=== PATIENT | female | born 1975 | race Caucasian/White ===

== ENCOUNTER → 2024-08-09 | Outpatient (CLI) | payer MEDICAID, SELFPAY ==
--- NOTE | 2024-08-09 | XR_ITS ---
Examination: Lumbar spine 2 views TECHNIQUE: Standing lateral flexion standing lateral extension lumbar spine 2 views Examination type: 2024 0807 hours INDICATIONS: Low back pain 21 years. FINDINGS: 4 mm anterolisthesis L5 on L4 in flexion, 3 mm in extension Qauv-vy-evjygfyb disc narrowing L2-L3, L4-L5 No lumbar fracture Significant decreased range of motion between flexion and extension IMPRESSION: No lumbar fracture [id number] degenerative disc disease L2-L3, L4-L5
--- NOTE | 2024-08-09 07:00 | XR_ITS ---
Examination: MRI lumbar spine without contrast Date and time of exam: August 09, 2024 at 0727 hours Comparison April 16, 2023 INDICATIONS: Low back pain 20 years, radiating down the legs Technique: Multiple MRI axial and sagittal sections lumbar spine. Sagittal T2-weighted images, TR 3500, TE 118 T1 weighted transverse sections, TR 688 T8.5, T2-weighted sagittal sections T1 weighted sagittal sections TR 621, TE 30 T2 axial sections, TR 4, 190, TE 84. Findings: Straightening normal lumbar lordosis No lumbar fracture Normal marrow signal lumbar vertebral bodies Mild disc narrowing L4-L5 with disc desiccation L4-L5 5 mm central lumbar disc bulge contiguous with the right and left L5 nerve roots Remaining levels are unremarkable IMPRESSION: L4-L5 5 mm several lumbar disc bulge contiguous with the right and left L5 nerve roots
== END | disposition home or self-care (01) ==
PROVIDERS: Referring Provider Specialist; Visit Provider Specialist
DX: M51.361 Other intervertebral disc degeneration, lumbar region with lower extremity pain only (principal)
CPT/HCPCS: 72120; 72148

== ENCOUNTER → 2024-09-09 | Outpatient (CLI) | payer MEDICAID, SELFPAY ==
--- NOTE | 2024-09-09 10:42 | XR_ITS ---
Examination: Lumbar spine 3 views Technique one AP lateral coned lateral lower lumbar spine 3 views Exam date and time: September 09, 2024 1217 hours INDICATIONS: Status post lumbar fusion August 27, 2024 FINDINGS: Transpedicular lumbar stabilization L4-S1 with anatomic alignment No lumbar fracture No spondylolisthesis Minimal lumbar spondylosis IMPRESSION: Lumbar stabilization L4-S1 with anatomic alignment
== END | disposition home or self-care (01) ==
PROVIDERS: Referring Provider Specialist; Visit Provider Specialist
DX: M51.361 Other intervertebral disc degeneration, lumbar region with lower extremity pain only (principal)
CPT/HCPCS: 72100

== ENCOUNTER 2024-11-30 15:23 | Emergency (ER) | payer MEDICAID, SELFPAY ==
[2024-11-30 15:24] VITALS: BMI 28.1
[2024-11-30 16:10] VITALS: BP 113/69; PULSE 67; RESP 17; TEMP 37.1; O2SAT 96
--- NOTE | 2024-11-30 16:14 | PD.EDHAND ---
Upper Extremity Injury RME/HPI General Chief Complaint: Hand/Wrist Problems Stated Complaint: I THINK I BROKE MY PINKY Time Seen by Provider: 11/30/24 15:45 Arrival date/time: 11/30/24 15:23 RME / HPI RME / HPI narrative: 49-year-old female presents to the ED with a complaint of left lateral hand injury secondary to an injury she sustained last night. She states she was walking down her hallway that has a couple of stairs and it, tripped and fell with her hand bent, striking her 4th and 5th MCP joint areas. She is complaining of swelling, pain and mild bruising. She states she has mild numbness to the left small finger. Related Data Home Medications ?Medication ?Instructions ?Recorded ?Confirmed gabapentin 600 mg tablet 1,200 mg PO TID #0 tabs 02/04/17 06/15/18 diclofenac sodium 75 mg 75 mg PO BID 07/08/17 06/15/18 tablet,delayed release baclofen 10 mg tablet 10 mg PO TID 12/09/17 06/15/18 Allergies Allergy/AdvReac Type Severity Reaction Status Date / Time sumatriptan Allergy Severe cxp Verified 11/30/24 15:23 Review of Systems Review of Systems Systems Reviewed: All systems reviewed, normal except as documented Past Medical History Past Medical History NEUROLOGIC: Negative Neurological Disorders CARDIAC: Positive Hypercholesterolemia and Hypertension; Negative Cardiac Disorders, Myocardial Infarction, Cardiac Arrhythmia, Atrial Fibrillation, Angina, Heart Murmur, Coronary Artery Disease, Atherosclerotic Heart Disease, Peripheral Vascular Disease, Aneurysm, Congestive Heart Failure, Congenital Heart Disease, Valvular Heart Disease, Rheumatic Fever, Cardiomyopathy, Edema, Pericarditis, Cellulitis, Deep Vein Thrombosis, Hypotension or Varicose Veins RESPIRATORY: Negative Chronic Obstructive Pulmonary Disease (COPD) or Asthma GASTROINTESTINAL: Positive Hepatitis; Negative Gastrointestinal Disorders or Colorectal Cancer GENITOURINARY: Negative Genitourinary Disorders, Renal Disease or Prostate Cancer REPRODUCTIVE: Negative Breast Cancer, Pelvic Inflammatory Disease or Testicular Cancer MUSCULOSKELETAL: Positive Musculoskeletal Disorders and Arthritis; Negative Bone Cancer ENDOCRINE: Negative Endocrine Disorders, Diabetes Mellitus Type 1, Diabetes Mellitus Type 2 or John's Disease HEMATOLOGIC: Positive Blood Disorders and Anemia; Negative Sickle Cell Disease OTHER HISTORY: Positive Chicken Pox; Negative Hospitalization, Autoimmune Disease, Down Syndrome, Developmental Delay, Shingles, Falls, Anesthesia Reactions, MRSA, Human Immunodeficiency Virus (HIV), Measles, Mumps, Rubella (Vietnamese Measles), Pertussis, Clostridium Difficile, Breast Cancer, Cervical Cancer, Colorectal Cancer, Lung Cancer, Ovarian Cancer, Prostate Cancer or Testicular Cancer Family History FAMILY HISTORY: Positive Family Psychiatric Problems, Family Respiratory Disorders, Family Cardiac Disorders and Family Cancer; Negative Family Gastrointestinal Problems, Family Surgery or Family Anesthesia Reaction Surgical History SURGICAL: Positive Hysterectomy; Negative Pacemaker Social History SMOKING STATUS: Current every day smoker ED Exam Narrative Physical exam: Alert and oriented, pleasant 49-year-old female, no acute distress. No respiratory distress noted. Skin is warm with normal color and dry with the exception of the fifth MCP joint area with minimal ecchymosis. Decreased range of motion of the 4th and 5th fingers secondary to swelling/pain. No tenderness to the 1st, 2nd, 3rd or 4th metacarpals or fingers. Course Course Course Narrative: X-rays of the left hand reveals: No acute fracture or dislocation. Left fifth finger splint placed. Quality Measures none Orders Category Date Time Status XR hand comp LT min 3V Stat Exams 11/30/24 16:17 Completed Vital Signs Vital signs: Vital Signs Temperature 98.8 F 11/30/24 16:10 Pulse Rate 67 11/30/24 16:10 Respiratory Rate 17 11/30/24 16:10 Blood Pressure 113/69 11/30/24 16:10 Pulse Oximetry (%) 96 11/30/24 16:10 Oxygen Delivery Method Room Air 11/30/24 16:10 Extremity Injury MDM Narrative MDM Narrative:: 49-year-old female presents to the ED with a complaint of left lateral hand injury secondary to an injury she sustained last night. She states she was walking down her hallway that has a couple of stairs and it, tripped and fell with her hand bent, striking her 4th and 5th MCP joint areas. She is complaining of swelling, pain and mild bruising. She states she has mild numbness to the left small finger. Alert and oriented, pleasant 49-year-old female, no acute distress. No respiratory distress noted. Skin is warm with normal color and dry with the exception of the fifth MCP joint area with minimal ecchymosis. Decreased range of motion of the 4th and 5th fingers secondary to swelling/pain. No tenderness to the 1st, 2nd, 3rd or 4th metacarpals or fingers. X-rays of the left hand reveals: No acute fracture or dislocation. Left fifth finger splint placed. Patient was discharged home in stable and improved condition with instruction to follow-up with her primary care physician in 24 to 48 hours. She was encouraged to return to the ED for any new or worsening symptoms. Patient data External records reviewed:: None Clinical information provided by:: patient Social determinants that could affect healthcare access:: none Patient has the following chronic illnesses:: Chronic back pain How is presenting disease/condition affected by chronic disease/condition?: uneffected by Evaluation data The following diagnostics were reviewed and interpreted by me:: radiology exam(s) Lab and/or radiology exams considered but not ordered:: N/A Interpretation Summary: As noted above Medications / Prescriptions Medications or Prescriptions considered but not ordered:: N/A Medication administrations:: N/A Consultations Consultation(s) initiated? (list below): No Diagnosis Upper Extremity Injury Differential Diagnosis: finger sprain, dislocation of finger and fracture of hand Most likely diagnosis given after review of the tests above:: Left send MCP joint contusion Admission Indicated Admission indicated?: not indicated Explain why admission is indicated or not indicated:: Patient is stable for discharge Admission Request Was there a request for admission?: No Admission Attestation Admission request attestation: N/A Disposition Plan Disposition Plan: Discharge Discharge Attestation Discharge Attestation: The patient and all family members were given an opportunity to ask questions and understood the discharge instructions. Discharge instructions specifically effects, indications for sooner follow up or return to the emergency department, and the expected course of current diagnosis. Patient condition: Stable Discharge Plan Plan Patient Disposition: HOME (Self Care) Discharge Disposition comment: Stable and improved Prescriptions/Referrals Prescriptions/Med Rec: No Action baclofen 10 mg tablet 10 mg PO TID gabapentin 600 MG tablet 1,200 mg PO TID Qty: 0 diclofenac sodium 75 mg Tablet,Delayed Release (Dr/Ec) 75 mg PO BID Referrals: No Primary/Family,Physician [Primary Care Provider] - In 1 week Problem List Clinical Impression: Contusion of hand, left Patient/Caregiver Discharge Instructions Education Materials: ED Hand Contusion Additional Instructions: Follow-up with your primary care physician in 24 to 48 hours. Return to the ED for any new or worsening symptoms. Print Language: Belarusian Stand Alone Forms: Emily Award Info., Patient Portal Info Letter PA/JACQUELINE Supervising Physician PA/JACQUELINE Supervising Physician: Dr. Rondon
--- NOTE | 2024-11-30 16:17 | XR_ITS ---
Examination: Hand, left 3 views Technique: Hand AP, oblique, lateral 3 views Date and time of exam: November 30, 2024 1627 hrs. Indications: Patient fell yesterday with injury to the hand, hand pain Findings: No acute fracture. No dislocation. No foreign body Impression: No acute fracture
[2024-11-30 17:39] VITALS: BP 140/84; PULSE 75; RESP 18; TEMP 37.2; O2SAT 96
== END 2024-11-30 18:32 | disposition home or self-care (01) ==
PROVIDERS: Emergency Provider Emergency Medicine
DX: S60.222A Contusion of left hand, initial encounter (principal); W10.9XXA Fall (on) (from) unspecified stairs and steps, initial encounter; Y93.01 Activity, walking, marching and hiking
CPT/HCPCS: 73130; 99282